=== PATIENT | female | born 1965 | race American Indian/Alaskan Native ===

== ENCOUNTER 2018-02-03 11:13 | Emergency (ER) | payer SELFPAY ==
[2018-02-03 11:21] VITALS: BP 199/114
[2018-02-03] MEDS ORDERED: TORADOL IM ONE (12:15)
--- NOTE | 2018-02-03 12:22 | Emergency Department Report ---
HPI - General Chief Complaint: Extremity Injury, Lower Time Seen by Provider: 02/03/18 12:19 - HPI HPI: 52-year-old with right thigh pain for the past 3 or 4 weeks, states symptoms of been getting worse so she went to her PCP we provided her with some muscle relaxers and some anti-inflammatories will limited effects. Patient denies any swelling, redness, fever, chills, night sweats. Able to ambulate without difficulty. ED Past Medical Hx - Past Medical History Hx Hypertension: Yes Additional medical history: H/O neck injury - Surgical History Additional Surgical History: Hysterectomy, carpal tunnel surgery 11/17/13 right wrist - Social History Smoking Status: Never Smoker Substance Use Type: None - Medications Home Medications: Home Medications Medication Instructions Recorded Confirmed Last Taken Type amLODIPine [Norvasc] 5 mg PO DAILY #30 tab 05/06/15 08/13/16 Unknown Rx amLODIPine [Norvasc] 5 mg PO DAILY #30 tab 07/08/15 08/13/16 Unknown Rx Ibuprofen [Motrin 600 MG tab] 600 mg PO Q8H PRN 08/13/16 08/13/16 Unknown History Cyclobenzaprine [Flexeril 10 MG 10 mg PO TID PRN #15 tablet 02/03/18 Unknown Rx TAB] ED Review of Systems ROS: Stated complaint: RIGHT LEG PAIN Other details as noted in HPI Comment: All other systems reviewed and negative Gastrointestinal: denies: abdominal pain, nausea, vomiting Musculoskeletal: myalgia Physical Exam - Physical Exam Vital Signs: Vital Signs 02/03/18 11:16 Temperature 98.4 F Pulse Rate 78 Respiratory 18 Rate Blood Pressure 199/114 O2 Sat by Pulse 97 Oximetry Physical Exam: - Physical Exam Physical Exam: - General Limitations: No Limitations General appearance: alert, in no apparent distress. - Head Head exam: Present: atraumatic, normocephalic - Eye Eye exam: Present: normal appearance - ENT ENT exam: Present: mucous membranes moist - Neck Neck exam: Present: normal inspection - Respiratory Respiratory exam: Present: normal lung sounds bilaterally. Absent: respiratory distress - Cardiovascular Cardiovascular Exam: Present: normal rhythm. Absent: systolic murmur, diastolic murmur, rubs, gallop - GI/Abdominal GI/Abdominal exam: Present: soft, normal bowel sounds - Extremities Exam Extremities exam: Present: normal inspection - Back Exam Back exam: Present: normal inspection - Neurological Exam Neurological exam: Present: alert, oriented X3 - Psychiatric Psychiatric exam: normal affect and mood - Skin Skin exam: Present: warm, dry, intact, normal color. Absent: rash ED Course Vital Signs 02/03/18 11:16 Temperature 98.4 F Pulse Rate 78 Respiratory 18 Rate Blood Pressure 199/114 O2 Sat by Pulse 97 Oximetry Critical care attestation.: If time is entered above; I have spent that time in minutes in the direct care of this critically ill patient, excluding procedure time. ED Disposition Clinical Impression: Pain of right thigh Disposition: DC-01 TO HOME OR SELFCARE Is pt being admited?: No Does the pt Need Aspirin: No Condition: Stable Prescriptions: Cyclobenzaprine [Flexeril 10 MG TAB] 10 mg PO TID PRN #15 tablet PRN Reason: Muscle Spasm Referrals: PRIMARY CARE, [Primary Care Provider] - 3-5 Days SIMONE LANZA MD [Staff Physician] - 3-5 Days
== END 2018-02-03 14:15 | disposition home or self-care (01) ==
LOC: ED 11:13
DX: M79.651 Pain in right thigh (principal); I10 Essential (primary) hypertension; Z90.710 Acquired absence of both cervix and uterus
CPT/HCPCS: 36415; 85379; 93971; 96372; 99283; J1885

== ENCOUNTER 2018-03-23 17:12 | Emergency (ER) | payer OTHER ==
[2018-03-23] MEDS ORDERED: CATAPRES ONE (17:19)
[2018-03-23] MEDS ORDERED: CATAPRES PO ONE (17:23)
[2018-03-23 18:21] LABS: Basophils % (Auto) 0.7 % (0.0-1.8); Eosinophils # (Auto) 0.1 K/mm3 (0.0-0.4); Eosinophils % (Auto) 2.2 % (0.0-4.3); Hematocrit 40.6 % (30.3-42.9); Hemoglobin 13.4 gm/dl (10.1-14.3); Lymphocytes # (Auto) 1.3 K/mm3 (1.2-5.4); Lymphocytes % (Auto) 31.4 % (13.4-35.0); Mean Corpuscular HGB Conc 33 % (30-34); Mean Corpuscular Hemoglobin 29 pg (28-32); Mean Corpuscular Volume 88 fl (79-97); Monocytes # (Auto) 0.2 K/mm3 (0.0-0.8); Monocytes % (Auto) 5.8 % (0.0-7.3); Platelet Count 231 K/mm3 (140-440); Red Blood Count 4.63 M/mm3 (3.65-5.03); Red Cell Distribution Width 13.2 % (13.2-15.2)
[2018-03-23 18:24] LABS: BUN/Creatinine Ratio 13; Blood Urea Nitrogen 8 mg/dL (7-17); Calcium 9.9 mg/dL (8.4-10.2); Hemolysis Index 1
[2018-03-23 19:07] VITALS: BP 130/85
[2018-03-23] MEDS ORDERED: ZOFRAN ODT PO ONE (20:39)
[2018-03-23] MEDS ORDERED: TORADOL IM ONE (20:39)
[2018-03-23] MEDS ORDERED: DILAUDID IM ONE (20:39)
--- NOTE | 2018-03-23 20:44 | Emergency Department Report ---
ED Extremity Problem HPI - General Chief complaint: Extremity Injury, Lower Stated complaint: RIGHT LEG PAIN Time Seen by Provider: 03/23/18 20:27 Source: patient, old records reviewed Mode of arrival: Ambulatory Limitations: No Limitations - History of Present Illness Initial comments: 52-year-old female with a past medical history of hypertension, chronic neck, back pain, presents to the hospital complaining of ongoing right hip pain radiating down right leg 3 months. Patient has presented he had several other hospitals for the same. She recently had her insurance reinstated and saw a PMD last week and this week. She is prescribed Lortab, Naprosyn, and muscle relaxants and states his medications were helping her pain. She is also recently started on Norvasc 5 mg once a day for blood pressure. Last dosed this a.m. but presents to the ER with elevated BP. Patient right hip pain is pain 10/10 in intensity, aching, constant, radiates down leg. Patient feels like her right leg is swollen and it feels like jelly on the bottom of her foot. No urinary incontinence, and oriented. Patient was here 02/03/2018 for similar symptoms and had a negative d-dimer and negative right leg DVT study at that time. Patient states she's also had a couple of outpatient hip x-rays. She is scheduled for hip outpatient CT. No recent fall or injury reported. Severity scale (0 -10): 9 - Related Data Home Medications Medication Instructions Recorded Confirmed Last Taken Ibuprofen [Motrin 600 MG tab] 600 mg PO Q8H PRN 08/13/16 08/13/16 Unknown Previous Rx's Medication Instructions Recorded Last Taken Type amLODIPine [Norvasc] 5 mg PO DAILY #30 tab 05/06/15 Unknown Rx amLODIPine [Norvasc] 5 mg PO DAILY #30 tab 07/08/15 Unknown Rx Cyclobenzaprine [Flexeril 10 MG 10 mg PO TID PRN #15 tablet 02/03/18 Unknown Rx TAB] Ibuprofen [Motrin] 800 mg PO Q8HR PRN #30 tablet 03/23/18 Unknown Rx amLODIPine [Norvasc] 10 mg PO DAILY #30 tab 03/23/18 Unknown Rx oxyCODONE /ACETAMINOPHEN [Percocet 1 tab PO Q6HR PRN #20 tablet 03/23/18 Unknown Rx 5/325] Allergies Allergy/AdvReac Type Severity Reaction Status Date / Time tramadol AdvReac N/V Verified 02/03/18 11:15 ED Review of Systems ROS: Stated complaint: RIGHT LEG PAIN Other details as noted in HPI Comment: All other systems reviewed and negative ED Past Medical Hx - Past Medical History Previous Medical History?: Yes Hx Hypertension: Yes Additional medical history: H/O neck injury , back pain - Surgical History Past Surgical History?: Yes Additional Surgical History: Hysterectomy, carpal tunnel surgery 11/17/13 right wrist - Social History Smoking Status: Never Smoker Substance Use Type: Prescribed - Medications Home Medications: Home Medications Medication Instructions Recorded Confirmed Last Taken Type amLODIPine [Norvasc] 5 mg PO DAILY #30 tab 05/06/15 08/13/16 Unknown Rx amLODIPine [Norvasc] 5 mg PO DAILY #30 tab 07/08/15 08/13/16 Unknown Rx Ibuprofen [Motrin 600 MG tab] 600 mg PO Q8H PRN 08/13/16 08/13/16 Unknown History Cyclobenzaprine [Flexeril 10 MG 10 mg PO TID PRN #15 tablet 02/03/18 Unknown Rx TAB] Ibuprofen [Motrin] 800 mg PO Q8HR PRN #30 tablet 03/23/18 Unknown Rx amLODIPine [Norvasc] 10 mg PO DAILY #30 tab 03/23/18 Unknown Rx oxyCODONE /ACETAMINOPHEN [Percocet 1 tab PO Q6HR PRN #20 tablet 03/23/18 Unknown Rx 5/325] ED Physical Exam - General Limitations: No Limitations - Other Other exam information: General: No limitations, patient is alert in no acute distress Head exam: Atraumatic, normocephalic Eyes exam: Normal appearance ENT: Moist mucous membrane, normal oropharynx Neck exam: Normal inspection, full range of motion, no meningismus nontender Respiratory exam: Clear to auscultation bilateral, no wheezes, rales, crackles Cardiovascular: Normal rate and rhythm, normal heart sounds Abdomen: Soft, nondistended, and nontender, with normal bowel sounds, no rebound, or guarding Extremity: Full range of motion normal inspection no deformity, pain radiating down right leg with straight leg raise, 2+ right DP pulse. No isolated calf tenderness Back: Normal Inspection, full range of motion, no tenderness Neurologic: Alert, oriented x3, cranial nerves intact, decrease sensation to touch to right lateral Psychiatric: normal affect, normal mood Skin: Warm, dry, intact ED Course Vital Signs 03/23/18 03/23/18 03/23/18 17:15 17:27 19:06 Temperature 98.7 F Pulse Rate 80 80 62 Respiratory 18 20 Rate Blood Pressure 219/128 219/128 Blood Pressure 130/85 [Right] O2 Sat by Pulse 100 99 Oximetry 03/23/18 19:07 Temperature Pulse Rate 62 Respiratory 20 Rate Blood Pressure 130/85 Blood Pressure [Right] O2 Sat by Pulse Oximetry - Reevaluation(s) Reevaluation #1: 03/23/18 20:45 Patient received clonidine prior to my evaluation with improvement in BP ED Medical Decision Making - Lab Data Result diagrams: 03/23/18 17:48 03/23/18 17:48 Lab Results 03/23/18 03/23/18 03/23/18 Range/Units 17:48 17:48 20:56 WBC 4.1 L (4.5-11.0) K/mm3 RBC 4.63 (3.65-5.03) M/mm3 Hgb 13.4 (10.1-14.3) gm/dl Hct 40.6 (30.3-42.9) % MCV 88 (79-97) fl MCH 29 (28-32) pg MCHC 33 (30-34) % RDW 13.2 (13.2-15.2) % Plt Count 231 (140-440) K/mm3 Lymph % (Auto) 31.4 (13.4-35.0) % [place] % (Auto) 5.8 (0.0-7.3) % Eos % (Auto) 2.2 (0.0-4.3) % Baso % (Auto) 0.7 (0.0-1.8) % Lymph # 1.3 (1.2-5.4) K/mm3 [place] # 0.2 (0.0-0.8) K/mm3 Eos # 0.1 (0.0-0.4) K/mm3 Baso # 0.0 (0.0-0.1) K/mm3 Seg Neutrophils % 59.9 (40.0-70.0) % Seg Neutrophils # 2.4 (1.8-7.7) K/mm3 D-Dimer < 135.00 (0-234) ng/mlDDU Sodium 146 H (137-145) mmol/L Potassium 4.4 (3.6-5.0) mmol/L Chloride 106.0 (98-107) mmol/L Carbon Dioxide 31 H (22-30) mmol/L Anion Gap 13 mmol/L BUN 8 (7-17) mg/dL Creatinine 0.6 L (0.7-1.2) mg/dL Estimated GFR > 60 ml/min BUN/Creatinine Ratio 13 % Glucose 122 H (65-100) mg/dL Calcium 9.9 (8.4-10.2) mg/dL - Medical Decision Making Patient's d-dimer is negative Patient's pain level 0/10 after receiving IM Dilaudid, Toradol, Decadron, and by mouth Zofran Additional pain medication will be prescribed and outpatient follow-up with a specialist and PMD will be encouraged for ongoing right leg pain. Increase in Norvasc to 10 mg daily will be recommended given uncontrolled blood pressure - Differential Diagnosis sciatica, DVT, arthritis, muscle strain, radiculopathy Critical Care Time: No Critical care attestation.: If time is entered above; I have spent that time in minutes in the direct care of this critically ill patient, excluding procedure time. ED Disposition Clinical Impression: Right hip pain, Uncontrolled hypertension, Chronic pain Sciatica Qualifiers: Laterality: right Qualified Code(s): M54.31 - Sciatica, right side Disposition: TO HOME OR SELFCARE Is pt being admited?: No Does the pt Need Aspirin: No Condition: Stable Instructions: Hypertension (ED), Sciatica (ED), Arthralgia (ED) Additional Instructions: Follow-up with your primary care doctor and an orthopedic doctor for further workup and evaluation of ongoing right hip pain. Take the medication as prescribed. Take either Motrin or Naprosyn but did not take both. Take either Percocet or Lortab but do not take both. Return if symptoms worsen as indicated. Discharge instructions. Increase you Norvasc to 10 mg once a day for adequate blood pressure control Prescriptions: amLODIPine [Norvasc] 10 mg PO DAILY #30 tab Ibuprofen [Motrin] 800 mg PO Q8HR PRN #30 tablet PRN Reason: Pain, Moderate (4-6) oxyCODONE /ACETAMINOPHEN [Percocet 5/325] 1 tab PO Q6HR PRN #20 tablet PRN Reason: Pain Referrals: SIMONE LANZA MD [Staff Physician] - 3-5 Days WILLIAMS JOHNSON MD [Staff Physician] - 3-5 Days Time of Disposition: 21:56
[2018-03-23] MEDS ORDERED: DECADRON IM ONE (20:58)
== END 2018-03-23 22:15 | disposition home or self-care (01) ==
LOC: ED 17:12
DX: M54.31 Sciatica, right side (principal); G89.29 Other chronic pain; I10 Essential (primary) hypertension; Z90.710 Acquired absence of both cervix and uterus; Z98.890 Other specified postprocedural states; Z88.6 Allergy status to analgesic agent
CPT/HCPCS: 36415; 80048; 85025; 85379; 96372; 99283; J1170; J1885; Q0162

== ENCOUNTER 2018-04-03 05:59 | Emergency (ER) | payer OTHER ==
[2018-04-03] MEDS ORDERED: NORCO 5/325 PO ONE (08:48)
[2018-04-03] MEDS ORDERED: ZOFRAN ODT PO ONE (08:49)
[2018-04-03] MEDS ORDERED: MOTRIN PO ONE (08:49)
--- NOTE | 2018-04-03 08:53 | Emergency Department Report ---
ED Back Pain/Injury HPI - General Chief Complaint: Extremity Problem,Nontraumatic Stated Complaint: RT LEG PAIN Time Seen by Provider: 04/03/18 08:09 Source: patient Limitations: No Limitations - History of Present Illness Initial Comments: 52-year-old female past medical history hypertension, chronic lower back pain, carpal tunnel syndrome, hysterectomy presents with complaint of acute on chronic right lower extremity pain. States it radiates from her right buttock down through her right leg. This is an ongoing issue for 3-4 months. Denies any recent trauma or falls. Denies fever or chills. Denies dysuria or hematuria or increased urinary frequency. Patient is fully lucid and is ambulatory without assistance. States she is frustrated because she has constant pain that will not go away. States she is following up as an outpatient with primary care and she has a CT scan of her L-spine scheduled for Sunday of this week. States she is taking meloxicam with minimal relief of her pain. MD Complaint: back pain Onset/Timin -: month(s) Radiation: buttocks, right leg Severity: moderate Severity scale (0 -10): 6 Quality: aching Consistency: intermittent Improves With: none Context: while lifting, turning/twisting, bending Associated Symptoms: denies other symptoms - Related Data Home Medications Medication Instructions Recorded Confirmed Last Taken Ibuprofen [Motrin 600 MG tab] 600 mg PO Q8H PRN 08/13/16 08/13/16 Unknown Previous Rx's Medication Instructions Recorded Last Taken Type amLODIPine [Norvasc] 5 mg PO DAILY #30 tab 05/06/15 Unknown Rx amLODIPine [Norvasc] 5 mg PO DAILY #30 tab 07/08/15 Unknown Rx Cyclobenzaprine [Flexeril 10 MG 10 mg PO TID PRN #15 tablet 02/03/18 Unknown Rx TAB] Ibuprofen [Motrin] 800 mg PO Q8HR PRN #30 tablet 03/23/18 Unknown Rx amLODIPine [Norvasc] 10 mg PO DAILY #30 tab 03/23/18 Unknown Rx oxyCODONE /ACETAMINOPHEN [Percocet 1 tab PO Q6HR PRN #20 tablet 03/23/18 Unknown Rx 5/325] Acetaminophen/Codeine [Tylenol 1 tab PO Q6H PRN #12 tab 04/03/18 Unknown Rx /Codeine # 3 tab] Allergies Allergy/AdvReac Type Severity Reaction Status Date / Time tramadol AdvReac N/V Verified 02/03/18 11:15 ED Review of Systems ROS: Stated complaint: RT LEG PAIN Other details as noted in HPI Constitutional: denies: chills, fever Eyes: denies: eye pain, eye discharge, vision change ENT: denies: ear pain, throat pain Respiratory: denies: cough, shortness of breath, wheezing Cardiovascular: denies: chest pain, palpitations Endocrine: no symptoms reported Gastrointestinal: denies: abdominal pain, nausea, diarrhea Genitourinary: denies: urgency, dysuria, discharge Musculoskeletal: back pain (3 months of persistent lower back pain). denies: joint swelling, arthralgia Skin: denies: rash, lesions Neurological: denies: headache, weakness, paresthesias Psychiatric: denies: anxiety, depression Hematological/Lymphatic: denies: easy bleeding, easy bruising ED Past Medical Hx - Past Medical History Previous Medical History?: Yes Hx Hypertension: Yes Additional medical history: H/O neck injury , back pain - Surgical History Past Surgical History?: Yes Additional Surgical History: Hysterectomy, carpal tunnel surgery 11/17/13 right wrist - Social History Smoking Status: Never Smoker Substance Use Type: None - Medications Home Medications: Home Medications Medication Instructions Recorded Confirmed Last Taken Type amLODIPine [Norvasc] 5 mg PO DAILY #30 tab 05/06/15 08/13/16 Unknown Rx amLODIPine [Norvasc] 5 mg PO DAILY #30 tab 07/08/15 08/13/16 Unknown Rx Ibuprofen [Motrin 600 MG tab] 600 mg PO Q8H PRN 08/13/16 08/13/16 Unknown History Cyclobenzaprine [Flexeril 10 MG 10 mg PO TID PRN #15 tablet 02/03/18 Unknown Rx TAB] Ibuprofen [Motrin] 800 mg PO Q8HR PRN #30 tablet 03/23/18 Unknown Rx amLODIPine [Norvasc] 10 mg PO DAILY #30 tab 03/23/18 Unknown Rx oxyCODONE /ACETAMINOPHEN [Percocet 1 tab PO Q6HR PRN #20 tablet 03/23/18 Unknown Rx 5/325] Acetaminophen/Codeine [Tylenol 1 tab PO Q6H PRN #12 tab 04/03/18 Unknown Rx /Codeine # 3 tab] ED Physical Exam - General Limitations: No Limitations General appearance: alert, in no apparent distress - Head Head exam: Present: atraumatic, normocephalic - Eye Eye exam: Present: normal appearance, PERRL, EOMI - ENT ENT exam: Present: mucous membranes moist - Neck Neck exam: Present: normal inspection - Respiratory Respiratory exam: Present: normal lung sounds bilaterally. Absent: respiratory distress - Cardiovascular Cardiovascular Exam: Present: regular rate, normal rhythm. Absent: systolic murmur, diastolic murmur, rubs, gallop - GI/Abdominal GI/Abdominal exam: Present: soft, normal bowel sounds - Extremities Exam Extremities exam: Present: normal inspection - Back Exam Back exam: Present: normal inspection, full ROM (no midline tenderness cervical thoracic or lumbar spine.) - Expanded Back Exam Expanded Back exam: Sciatic Notch Tenderness: Right, Positive Straight Leg Raise: Right ( positive straight leg raise test at 45 right leg) - Neurological Exam Neurological exam: Present: alert, oriented X3, CN II-XII intact, normal gait - Psychiatric Psychiatric exam: Present: normal affect, normal mood - Skin Skin exam: Present: warm, dry, intact, normal color. Absent: rash ED Course Vital Signs 04/03/18 06:13 Temperature 98.3 F Pulse Rate 86 Respiratory 16 Rate Blood Pressure 176/119 O2 Sat by Pulse 100 Oximetry ED Medical Decision Making - Medical Decision Making A/P: Chronic sciatica, asymptomatic hypertension 1-patient's symptoms consistent with sciatica. Her symptoms have been ongoing for 3-4 months. No reports of recent falls or trauma. No clinical signs of cauda equina. No saddle paresthesias bladder bowel incontinence. Patient is able to without assistance. Strength 5 out of 5 bilateral lower extremities and deep tendon reflexes are intact on exam 2-patient is taking meloxicam on a daily basis. Will give short course of tylenol#3 3-I advised patient that she must follow-up with outpatient orthopedics or neurosurgery. Patient has a CT scan of L-spine scheduled today's from now. I advised her it is important to follow up with this exam. 4- vital signs stable for discharge. Patient has a history of hypertension and is taking her medicines regularly. Patient denies any current chest pain and blurry vision palpitations shortness of breath. Asymptomatic hypertension. I advised patient to follow up with her primary doctor and to continue her current regimen 5- no clinical signs of DVT on exam Critical care attestation.: If time is entered above; I have spent that time in minutes in the direct care of this critically ill patient, excluding procedure time. ED Disposition Clinical Impression: Hypertension Sciatica Qualifiers: Laterality: right Qualified Code(s): M54.31 - Sciatica, right side Disposition: TO HOME OR SELFCARE Is pt being admited?: No Does the pt Need Aspirin: No Condition: Stable Instructions: Sciatica (ED), Hypertension (ED) Prescriptions: Acetaminophen/Codeine [Tylenol /Codeine # 3 tab] 1 tab PO Q6H PRN #12 tab PRN Reason: Pain , Severe (7-10) Referrals: STEVAN AVILA MD [Primary Care Provider] - 3-5 Days SIMONE LANZA MD [Staff Physician] - 3-5 Days DAMIÁN CASTRO MD [Staff Physician] - 3-5 Days Time of Disposition: 10:22
[2018-04-03 09:42] VITALS: BP 177/101
== END 2018-04-03 10:35 | disposition home or self-care (01) ==
LOC: ED 05:59
DX: M54.31 Sciatica, right side (principal); I10 Essential (primary) hypertension; Z79.899 Other long term (current) drug therapy; Z88.6 Allergy status to analgesic agent; Z90.710 Acquired absence of both cervix and uterus
CPT/HCPCS: 99282; Q0162

== ENCOUNTER 2018-07-01 22:00 | Emergency (ER) | payer OTHER ==
[2018-07-01 23:18] LABS: Basophils % (Auto) 0.8 % (0.0-1.8); Eosinophils # (Auto) 0.1 K/mm3 (0.0-0.4); Eosinophils % (Auto) 2.3 % (0.0-4.3); Hematocrit 42.1 % (30.3-42.9); Lymphocytes # (Auto) 1.6 K/mm3 (1.2-5.4); Lymphocytes % (Auto) 35.9 % (13.4-35.0); Mean Corpuscular HGB Conc 36 % (30-34); Mean Corpuscular Hemoglobin 31 pg (28-32); Mean Corpuscular Volume 86 fl (79-97); Monocytes # (Auto) 0.3 K/mm3 (0.0-0.8); Monocytes % (Auto) 6.3 % (0.0-7.3); Platelet Count 221 K/mm3 (140-440); Red Blood Count 4.87 M/mm3 (3.65-5.03); Red Cell Distribution Width 13.3 % (13.2-15.2)
[2018-07-01 23:28] LABS: INR 0.94 (0.87-1.13)
[2018-07-01 23:29] LABS: Partial Thromboplastin Time 28.2 Sec. (24.2-36.6)
[2018-07-01 23:36] LABS: BUN/Creatinine Ratio 17; Blood Urea Nitrogen 10 mg/dL (7-17); Calcium 9.6 mg/dL (8.4-10.2); Hemolysis Index 36
--- NOTE | 2018-07-01 23:41 | Cat Scan Report ---
FINAL REPORT EXAM: CT HEAD/BRAIN WO CON HISTORY: H/A WITH VERTIGO DIZZINESS TECHNIQUE: 2.5 millimeter axial images from the skullbase to the vertex. Comparison: None FINDINGS: There is no evidence of an acute intracranial process, intracranial hemorrhage or mass effect. The ventricles are normal size. The visualized portions of the orbits, paranasal and mastoid sinuses are unremarkable. The bony structures are unremarkable in appearance. IMPRESSION: 1. No evidence of an acute intracranial process, intracranial hemorrhage or mass effect. If there is a clinical suspicion of an acute intracranial process and if further imaging is required, MRI may be helpful.
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
[2018-07-02] MEDS ORDERED: ZOFRAN IM ONE (01:22)
[2018-07-02] MEDS ORDERED: MORPHINE IM ONE (01:22)
[2018-07-02 02:26] VITALS: BP 146/89
== END 2018-07-02 02:34 | disposition home or self-care (01) ==
LOC: ED 22:00
DX: I10 Essential (primary) hypertension (principal); Z90.710 Acquired absence of both cervix and uterus; Z79.899 Other long term (current) drug therapy; Z88.6 Allergy status to analgesic agent
CPT/HCPCS: 36415; 70450; 80048; 84484; 85025; 85610; 85670; 85730; 96372; 99284; J2270; J2405

== ENCOUNTER 2020-10-17 12:59 | Emergency (ER) | payer OTHER ==
[2020-10-17] MEDS ORDERED: IBUPROFEN 600 MG TAB PO ONE (13:28)
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
[2020-10-17 16:39] VITALS: BP 188/105
== END 2020-10-17 16:39 | disposition home or self-care (01) ==
LOC: ED 12:59
DX: S80.12XA Contusion of left lower leg, initial encounter (principal); M54.6 Pain in thoracic spine; I10 Essential (primary) hypertension; Z90.710 Acquired absence of both cervix and uterus; Z98.890 Other specified postprocedural states; Z79.1 Long term (current) use of non-steroidal anti-inflammatories (NSAID); Z79.899 Other long term (current) drug therapy; Z88.8 Allergy status to other drugs, medicaments and biological substances; V49.49XA Driver injured in collision with other motor vehicles in traffic accident, initial encounter; W22.10XA Striking against or struck by unspecified automobile airbag, initial encounter; Y93.89 Activity, other specified; Y92.410 Unspecified street and highway as the place of occurrence of the external cause; Y99.8 Other external cause status
CPT/HCPCS: 70450; 72100; 72125

== ENCOUNTER 2021-07-14 11:43 | Emergency (ER) | payer BC, OTHER ==
[2021-07-14 12:04] VITALS: BP 164/92
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
== END 2021-07-14 13:21 | disposition home or self-care (01) ==
LOC: ED 11:43
DX: M54.42 Lumbago with sciatica, left side (principal); I10 Essential (primary) hypertension; Z90.710 Acquired absence of both cervix and uterus; Z98.890 Other specified postprocedural states; Z88.5 Allergy status to narcotic agent
CPT/HCPCS: 99282

== ENCOUNTER 2021-07-24 20:51 | Emergency (ER) | payer BC, OTHER ==
[2021-07-24] MEDS ORDERED: oxyCODONE /ACETAMINOPHEN 5-325MG TAB PO ONE (21:40)
[2021-07-24] MEDS ORDERED: IBUPROFEN 800 MG TAB PO ONE (21:40)
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
[2021-07-24 23:31] VITALS: BP 150/76
== END 2021-07-24 23:29 | disposition home or self-care (01) ==
LOC: ED 20:51
DX: S43.491A Other sprain of right shoulder joint, initial encounter (principal); S16.1XXA Strain of muscle, fascia and tendon at neck level, initial encounter; S20.219A Contusion of unspecified front wall of thorax, initial encounter; M25.552 Pain in left hip; I10 Essential (primary) hypertension; Z90.710 Acquired absence of both cervix and uterus; Z98.890 Other specified postprocedural states; Z79.899 Other long term (current) drug therapy; Z88.6 Allergy status to analgesic agent; V89.2XXA Person injured in unspecified motor-vehicle accident, traffic, initial encounter; Y93.89 Activity, other specified; Y92.488 Other paved roadways as the place of occurrence of the external cause; Y99.8 Other external cause status
CPT/HCPCS: 71046; 72040; 99283